=== PATIENT | male | born 1970 | race Hispanic/Latino ===

== ENCOUNTER 2017-02-01 18:23 | Inpatient (IN) | payer MEDICAID, OTHER ==
[2017-02-01 20:28] LABS: EOS # 0.4 K/uL (0.0-0.7); LYMPH # 1.3 K/uL (1.0-4.3); MONO # 0.6 K/uL (0.0-0.8); MONO % 11.8 % (0.0-10.0)
[2017-02-01 20:42] LABS: ALCOHOL SERUM < 10 mg/dl (0-10); ALKALINE PHOSPHATASE 70 U/L (38-126); ALT/SGPT 249 U/L (21-72); AST/SGOT 142 U/L (17-59); BILIRUBIN,TOTAL 0.6 mg/dL (0.2-1.3); BLOOD UREA NITROGEN 14 mg/dL (9-20); CARBON DIOXIDE 28 mmol/L (22-30); CHLORIDE 101 mmol/L (98-107); GFR AFRICAN-AMERICAN > 60; GLUCOSE,RANDOM 141 mg/dL (75-110); POTASSIUM 3.7 mmol/L (3.6-5.2); SODIUM 136 mmol/L (132-148); TOTAL PROTEIN 8.4 g/dL (6.3-8.3)
[2017-02-01 20:45] LABS: ALB/GLOB RATIO 0.7 (1.0-2.1); RBC URINE 4 /hpf (0-3); URINE BACTERIA RARE (<OCC); URINE BILIRUBIN NEGATIVE (NEGATIVE); URINE BLOOD 1+ (NEGATIVE); URINE COLOR Yellow (YELLOW); URINE GLUCOSE (UA) NORMAL (Normal); URINE KETONE NEGATIVE (NEGATIVE); URINE LEUKOCYTE ESTERASE NEG Leu/uL (Negative); URINE PROTEIN NEGATIVE (NEGATIVE); WBC URINE < 1 /hpf (0-5)
[2017-02-01 20:51] LABS: BASO % 0.5 % (0.0-2.0); EOS % 8.5 % (0.0-4.0); HEMATOCRIT 39.9 % (35.0-51.0); LYMPH % 28.3 % (20.0-40.0); MEAN CELL VOLUME 90.3 fL (80.0-94.0); MEAN CORPUSCULAR HEMOGLOBIN 30.8 pg (27.0-31.0); MEAN CORPUSCULAR HGB CONC 34.1 g/dL (33.0-37.0); MEAN PLATELET VOLUME 9.8 fL (7.2-11.7); NRBC % 0.1 % (0.0-2.0); RED CELL DISTRIBUTION WIDTH 14.8 % (11.5-14.5); WHITE BLOOD COUNT 4.7 K/uL (4.8-10.8)
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
--- NOTE | 2017-02-01 22:38 | PCM.BM ---
<Toyin Mix - Last Filed: 02/01/17 22:37> Treatment Plan Problems - Problems identified on initial assessmt potiential for opiate withdrawal Date Initiated: 02/01/17 Time Initiated: 22:37 Assessment reference: NA Status: Active Treatment assets and liabiliti Patient Assests: ADL independent, cognitively intact Patient Liabilities: substance abuse - Milieu Protocol Maintain good personal hygiene: daily Encourage regular showers, daily Remind patient to perform daily oral care, daily Assist patient to perform ADL's Maintain personal safety: every shift Educate patient to report safety concerns to staff, every shift Monitor environment for contraband/sharps Medication safety: Monitor for expected outcome, potential side effects: every shift, Assess barriers to learning: every shift, Assess readiness for medication education: every shift <Gabriel Lee - Last Filed: 02/02/17 12:38> - Diagnosis (1) Opioid use disorder, severe, dependence Status: Acute Interventions: 02/02/17 12:37 * Assess 7x/week regarding severity of withdrawal * Educate regarding risks, benefits, side effects and alternatives of medications * Use Motivational Interviewing for abstinence * Use CBT for relapse prevention * Medication management for withdrawal symptoms * Encourage medication assisted treatment *
[2017-02-02] MEDS ORDERED: Aluminum Hydroxide/Magnesium Hydroxide Susp (30 mL) PO PRN (06:41)
--- NOTE | 2017-02-02 10:00 | PCM.PSYCH ---
Initial Psychiatric Evaluation - Initial Psychiatric Evaluation Type of Admission: Voluntary Legal Status: Capacity Chief Complaint (in patient's own words): "Not well" History of Present Illness and Precipitating Events: The pt is seen, chart reviewed and case discussed. He is known from a previous admission. He is a 46 yo WM, with one child (aged 8), unemployed and wouldn't tell what he does for a living, lives with and child in [facility]. He admits to using 10-11 bags of heroin, IV. He started 10 years ago, but he is a poor historian (aloof, evasive and guarded...again) He was on methadone in [place] "in the past" and his dose was 60 mg He has been to detox 6 times and rehab twice. He was with us last year. He claims he went to [facility] for a month but then relapsed again - after his detox here. He also used cocaine i.n in the past, alcohol "a little" and he smokes 1 ppd cigarette. Past psych hx: Denies Family psych hx: Denies Medical hx: Hep C (LFTs are again increased) Current Medications: Active Medications Generic Name Dose Route Start Last Admin Trade Name Freq PRN Reason Stop Dose Admin Al Hydrox/Mg Hydrox/Simethicone 30 ml 02/02/17 06:41 Maalox 30 Ml PO TID PRN Indigestion / Heartburn Clonidine HCl 0.1 mg 02/02/17 06:41 Catapres PO Q8 PRN COWS Score More or Equal to 5 Hydroxyzine HCl 50 mg 02/02/17 06:42 Atarax PO Q6H PRN Anxiety Loperamide HCl 2 mg 02/02/17 06:41 Imodium PO Q8 PRN Diarrhea Ondansetron HCl 4 mg 02/02/17 06:41 Zofran Tab PO Q8 PRN Nausea/Vomiting Trazodone HCl 100 mg 02/02/17 01:29 02/02/17 01:39 Desyrel PO 100 mg HS PRN Administration Insomnia Past Psychiatric History - Past Psychiatric History Previous Treatment History: None Pertinent Medical Hx (Current Medical&Sleep Prob, Allergies): Allergies Allergy/AdvReac Type Severity Reaction Status Date / Time No Known Allergies Allergy Verified 02/01/17 18:44 No Known Home Med 02/01/17 Review of Systems - Neurological Neurological: UNREMARKABLE - Psychiatric Psychiatric: Abnormal Sleep Pattern, Anxiety, Irritability. absent: Hallucinations, Homicidal Ideation, Paranoia, Suicidal Ideation Mental Status Examination - Personal Presentation Personal Presentation: Looks older than stated age - Affect Affect: Constricted - Motor Activity Motor Activity: Calm - Reliability in Providing Information Reliability in Providing Information: Fair - Speech Speech: Organized - Mood Mood: Anxious - Formal Thought Process Formal Thought Process: No Impairment - Cognitive Functions Orientation: Person, Place, Situation, Time Sensorium: Alert Attention/Concentration: Attentive Estimate of Intelligence: Average Judgement: Intact, as evidence by: Insight regarding need for hospitalization Memory: Recent intact, as evidence by: Ability to recall events of the day, Remote intact, as evidenced by: Abilit to recall sig. life events - Risk Risk: Withdrawal, Diminished functioning - Strength & Assets Inventory Strength & Assets Inventory: Cooperative - Limitations Limitations: Other DSM 5 DX - DSM 5 DSM 5 Diagnosis: Opioid withdrawal Opioid use d/o - severe Tobacco use d/o - severe Cocaine use d/o in remission - Recommended/Plan of Treatment Treatment Recommendations and Plan of Treatment: Subutex detox As needed medications Attend groups and activities Supportive therapy and psychoeducation [place] for abstinence CBT for relapse prevention Encourage MAT Refer to rehab or IOP, and self-help groups Smoking cessation with SD Nicotine patch 34 min Projected ELOS: 4-5 days Prognosis: good with treatment Discharge Plan and Discharge Criteria: No wdw sxs refer to IOP and MAt - Smoking Cessation Smoking Cessation Initiated: Yes
[2017-02-02] MEDS ORDERED: Buprenorphine Hydrochloride 2 mg SL ONE ×2 (18:09→19:17)
[2017-02-03] MEDS: Buprenorphine Hydrochloride 2 mg SL SCH (09:27)
--- NOTE | 2017-02-03 14:16 | PCM.PYCHPN ---
Psychiatric Progress Note - Psychiatric Progress Note Patient seen today, length of contact: 15 min Patient Chief Complaint: "I'm better but cannot sleep" Problems Identified/Issues Discussed: The pt is seen, chart reviewed, case discussed with staff. The pt is compliant with medications and reports no side-effects. Symptoms are improving but needs more time to stabilize. After care discussed, support and psychoeducation given. He isolates self and sleeps a lot during the day Medication Change: Yes (detox changes daily) Medical Record Reviewed: Yes Mental Status Examination - Cognitive Function Orientation: Person, Place, Situation, Time Memory: Intact Attention: WNL Concentration: WNL Association: WNL Fund of Knowledge: WNL - Mood Mood: Anxious - Affect Affect: Constricted - Speech Speech: Appropriate - Formal Thought Process Formal Thought Process: No Impairment - Suicidal Ideation Suicidal Ideation: No - Homicidal Ideation Homicidal Ideation: No Goal/Treatment Plan - Goal/Treatment Plan Need for Continued Stay: Discharge may exacerbated symptoms, Severe functional impairment Progress Toward Problem(s) and Goals/Treatment Plan: Subutex detox As needed medications Attend groups and activities Supportive therapy and psychoeducation [place] for abstinence CBT for relapse prevention Encourage MAT Refer to rehab or IOP, and self-help groups Smoking cessation with [place] Nicotine patch 34 min
[2017-02-03 14:37] VITALS: RESP 18
[2017-02-03 19:16] VITALS: O2SAT 95
[2017-02-04 06:45] VITALS: TEMP 97.5
[2017-02-04] MEDS: Buprenorphine Hydrochloride 2 mg SL SCH (09:14)
--- NOTE | 2017-02-04 09:50 | PCM.PYCHDC ---
Mental Status Examination - Mental Status Examination Orientation: Person, Place, Situation, Time Memory: Intact Mood: Anxious Affect: Constricted Speech: Appropriate Attention: WNL Concentration: Poor Association: WNL Fund of Knowledge: WNL Formal Thought Process: No Impairment Suicidal Ideation: No Current Homicidal Ideation?: No Discharge Summary - Discharge Note Reason for Hospitalization: Opioid detox Consultations:: List each consultation separately and include: 1. Reason for request. 2. Findings. 3. Follow-up Summary of Hospital Course include:: 1. Description of specific treatment plan utilized for patients during their course of treatmen. 2. Summarize the time- course for resolution of acute symptoms and/or regressed behaviors. 3. Describe issues identified and worked on during hospitalization. 4. Describe medication utilized. 5. Describe medical problems identified and treated. 6. Reassessment of suicide risk Summary of Hospital Course: The pt is seen, chart reviewed and case discussed. He is known from a previous admission. On admission: He is a 46 yo WM, with one child (aged 8), unemployed and wouldn't tell what he does for a living, lives with and child in [facility]. He admits to using 10-11 bags of heroin, IV. He started 10 years ago, but he is a poor historian (aloof, evasive and guarded...again) He was on methadone in [place] "in the past" and his dose was 60 mg He has been to detox 6 times and rehab twice. He was with us last year. He claims he went to [facility] for a month but then relapsed again - after his detox here. He also used cocaine i.n in the past, alcohol "a little" and he smokes 1 ppd cigarette. Past psych hx: Denies Family psych hx: Denies Medical hx: Hep C (LFTs are again increased) Hospital course: The pt was admitted and started on treatment with psychotherapy, support, psychoeducation and medications. LA and CBT used. The pt attended groups and activities, as well as milieu therapy. All the risks and benefits of medications are discussed and the patient understood and agreed. The pt improved with the treatments provided. However, he decided to leave [place] 2 days before his planned d/c date. He was overall aloof, isolated and seems like he had his agenda b/c his and he will drive to [facility] with their child today or tomorrow he said, which he did not tell us before. Risk of relapse, incl. OD and discussed but he still left. DCPP to be called. - Final Diagnosis (DSM 5) Condition upon Discharge: FAIR DSM 5: Opioid withdrawal Opioid use d/o - severe Tobacco use d/o - severe Cocaine use d/o in remission Disposition: AGAINST MEDICAL ADVICE Follow-up Treatment Plan: Return to ED if needed Stay away from drugs, alcohol Consider methadone maintenance or suboxone, vivtrol - Smoking Cessation Smoking Cessation Medication prescribed: No - Antipsychotic Medications Pt discharged on 2 or more routine antipsychotic medications: No
[2017-02-04 10:11] VITALS: BP 125/86; PULSE 81
== END 2017-02-04 10:15 | disposition left against medical advice (07) | DRG 743 ==
LOC: C.ER 18:23 → C.9E 21:09 → C.7D 21:59
PROVIDERS: ADMIT Psychiatry & Neurology Psychiatry; ATTEND Psychiatry & Neurology Psychiatry
DX: F11.23 Opioid dependence with withdrawal (principal); F14.90 Cocaine use, unspecified, uncomplicated; F17.210 Nicotine dependence, cigarettes, uncomplicated